=== PATIENT | female | born 1940 | race Caucasian/White ===

== ENCOUNTER 2016-10-17 18:17 | Emergency (ER) | payer OTHER ==
[~2016-10-17] VITALS: Ht 172.7 cm; Wt 81.8 kg
[2016-10-17 21:05] VITALS: BP 138/86
== END 2016-10-17 21:05 | disposition home or self-care (01) ==
LOC: ED 18:17
DX: M19.012 Primary osteoarthritis, left shoulder (principal); E78.00 Pure hypercholesterolemia, unspecified; Z79.899 Other long term (current) drug therapy
CPT/HCPCS: J1885; J2270; Q0162

== ENCOUNTER 2018-08-28 09:02 | Emergency (ER) | payer OTHER ==
[~2018-08-28] VITALS: Ht 170.2 cm; Wt 91.4 kg
[2018-08-28 09:33] VITALS: Ht 170.2 cm; Wt 91.4 kg
[2018-08-28 10:48] VITALS: BP 157/79
== END 2018-08-28 10:48 | disposition home or self-care (01) ==
LOC: ED 09:02
DX: M54.41 Lumbago with sciatica, right side (principal); E78.00 Pure hypercholesterolemia, unspecified; M19.90 Unspecified osteoarthritis, unspecified site
CPT/HCPCS: J1885

== ENCOUNTER 2019-05-12 11:21 | Inpatient (IN) | payer OTHER ==
[~2019-05-12] VITALS: Ht 172.7 cm; Wt 90.7 kg
[2019-05-12 11:22] VITALS: Ht 172.7 cm; Wt 90.7 kg
[2019-05-12 12:13] LABS: BASOPHIL % 0.4 % (0-2); PLATELET COUNT 255 x10^3mcL (130-400)
[2019-05-12 12:17] LABS: RED CELL DISTRIBUTION WIDTH 14.8 % (11.5-14.5)
[2019-05-12 12:32] LABS: CALCIUM 8.8 mg/dL (8.5-10.1); CARBON DIOXIDE 30.1 mmol/L (21-32); CHLORIDE SERUM 105 mmol/L (98-107); CREATININE SERUM 0.9 mg/dL (0.6-1.0); GLUCOSE SERUM 98 mg/dL (74-106); POTASSIUM SERUM 3.9 mmol/L (3.5-5.1); SODIUM SERUM 143 mmol/L (136-145)
[2019-05-12 12:37] LABS: ALBUMIN 3.7 g/dL (3.4-5.0); ALKALINE PHOSPHATASE 57 U/L (46-116); ALT/SGPT 20 U/L (14-59); AST/SGOT 16 U/L (15-37); BILIRUBIN TOTAL 0.4 mg/dL (0.20-1.00); TOTAL PROTEIN, SERUM 7.2 g/dL (6.4-8.2)
[2019-05-12] MEDS ORDERED: LEVOXYL0.1 MG PO (13:04)
[2019-05-12] MEDS ORDERED: NORCO 10-325 T1 EACH PO (13:05)
[2019-05-12] MEDS ORDERED: SIMVASTATIN10 M1 PO (13:05)
[2019-05-12] MEDS ORDERED: DULOXETINE HYDR60 MG PO (13:06)
[2019-05-12] MEDS ORDERED: HORIZANT300 MG PO (13:07)
[2019-05-12] MEDS ORDERED: TRAZODONE100 MG PO (13:07)
[2019-05-12] MEDS ORDERED: DETROL1 MG PO (13:08)
[2019-05-12 13:52] LABS: MAGNESIUM 1.8 mg/dL (1.8-2.4)
[2019-05-12 13:54] LABS: CHOLESTEROL/HDL RATIO 2.4
[2019-05-12 14:36] VITALS: BP 129/69
[2019-05-12 16:52] VITALS: BP 137/73
[2019-05-12 16:53] VITALS: BP 127/61
[2019-05-12 19:25] VITALS: BP 141/63
[2019-05-12 19:33] LABS: microscopic required? NO
[2019-05-12 19:44] LABS: urine erythrocyte NEGATIVE (NEGATIVE)
[2019-05-12 20:10] LABS: AMPHETAMINE QUAL UR NONE DETECTED (See below)
[2019-05-12 23:00] VITALS: BP 129/69
[2019-05-13 06:11] LABS: BASOPHIL % 0.4 % (0-2); PLATELET COUNT 225 x10^3mcL (130-400)
[2019-05-13 06:13] VITALS: BP 137/76
[2019-05-13 06:33] LABS: RED CELL DISTRIBUTION WIDTH 14.8 % (11.5-14.5)
[2019-05-13 06:51] LABS: CARBON DIOXIDE 31.8 mmol/L (21-32); CHLORIDE SERUM 104 mmol/L (98-107); GLUCOSE SERUM 103 mg/dL (74-106); POTASSIUM SERUM 5.4 mmol/L (3.5-5.1); SODIUM SERUM 141 mmol/L (136-145)
[2019-05-13 07:52] VITALS: BP 132/69
[2019-05-13] MEDS ORDERED: ROPINIROLE HYDRO1 MG PO (08:26)
[2019-05-13 12:40] VITALS: BP 144/77
[2019-05-13 14:34] VITALS: BP 144/77
== END 2019-05-13 15:25 | disposition home or self-care (01) | DRG 195 ==
LOC: ED 11:21 → DU 13:09
PROVIDERS: Emergency Medicine; ADMIT Internal Medicine
DX: R09.1 Pleurisy (principal); M25.512 Pain in left shoulder; G62.9 Polyneuropathy, unspecified; F41.9 Anxiety disorder, unspecified; E03.9 Hypothyroidism, unspecified; M19.90 Unspecified osteoarthritis, unspecified site; E78.5 Hyperlipidemia, unspecified; G89.29 Other chronic pain; Z87.891 Personal history of nicotine dependence; Z79.899 Other long term (current) drug therapy; Z23 Encounter for immunization; Z68.30 Body mass index [BMI] 30.0-30.9, adult
CPT/HCPCS: 83880; 90732; G0378; J1885; J2270; J2405; J3010; Q0092